=== PATIENT | male | born 1955 | race Two or more races ===

== ENCOUNTER 2019-04-13 06:15 | Day surgery (SDC) | payer OTHER | END 2019-04-13 10:55 | disposition home or self-care (01) | LOC: AMB-ENDOS 06:15 | DX: D12.4 Benign neoplasm of descending colon (principal); K57.30 Diverticulosis of large intestine without perforation or abscess without bleeding; K64.1 Second degree hemorrhoids; K92.1 Melena ==

== ENCOUNTER 2020-05-30 08:02 | Day surgery (SDC) | payer OTHER | END 2020-05-30 13:50 | disposition home or self-care (01) | LOC: AMB-ENDOS 08:02 | PROVIDERS: ATTEND Colon & Rectal Surgery | DX: K62.89 Other specified diseases of anus and rectum (principal); K64.1 Second degree hemorrhoids; Z20.828 Contact with and (suspected) exposure to other viral communicable diseases ==